=== PATIENT | male | born 1975 | race Caucasian/White ===

== ENCOUNTER 2018-05-26 10:48 | Outpatient (CLI) | payer MEDICARE, MEDICAID, SELFPAY ==
[2018-05-27 10:08] LABS: PSA, Screening 0.8 ng/ml (0-2.5)
== END 2018-05-26 11:08 ==
PROVIDERS: PCP Family Medicine; Visit Provider Nurse Practitioner Gerontology
DX: R33.9 Retention of urine, unspecified (principal); Z12.5 Encounter for screening for malignant neoplasm of prostate; N31.9 Neuromuscular dysfunction of bladder, unspecified
CPT/HCPCS: 36415; 51798; 84153; 99204

== ENCOUNTER → 2018-05-30 09:45 | Outpatient (BNVA) | payer MEDICARE, MEDICAID, SELFPAY | PROVIDERS: PCP Family Medicine; Visit Provider Nurse Practitioner Gerontology | DX: R33.9 Retention of urine, unspecified (principal); Z46.6 Encounter for fitting and adjustment of urinary device | CPT/HCPCS: 51798; 99214 ==

== ENCOUNTER 2018-05-30 11:49 | Day surgery (SDC) | payer MEDICARE, MEDICAID, SELFPAY ==
[2018-05-30 12:01] VITALS: BP 141/80; PULSE 66; RESP 16; TEMP 36.4; O2SAT 97
== END 2018-05-30 13:50 | disposition home or self-care (01) ==
LOC: SUR 11:49
PROVIDERS: PCP Family Medicine; Visit Provider Urology
DX: R33.9 Retention of urine, unspecified (principal); Z53.09 Procedure and treatment not carried out because of other contraindication; Y66 Nonadministration of surgical and medical care
CPT/HCPCS: 51798; 99214; 93005; 93010; 99211; J0690